=== PATIENT | male | born 1935 | race Caucasian/White ===

== ENCOUNTER 2018-11-23 05:39 | Inpatient (IN) | payer OTHER ==
[~2018-11-23] VITALS: Ht 170.2 cm; Wt 63.0 kg
[~2018-11-23 05:39] MED LIST: ALTACE10 MG PO; DIGOXIN250 MCG PO; FLOMAX0.4 MG PO; LASIX 20 MG TAB20 MG PO; LIPITOR 20 MG T20 M1 PO; METOPROLOL SUCC50 MG PO
[2018-11-23 05:47] VITALS: BP 141/85
[2018-11-23] MEDS ORDERED: PROSCAR 5MG TABL5 MG PO (06:14)
[2018-11-23] MEDS ORDERED: LOVASTATIN 20 M20 MG PO (06:14)
[2018-11-23] MEDS ORDERED: ZESTRIL10 MG PO (06:15)
[2018-11-23 06:35] LABS: ABSOLUTE NEUTROPHILS 6.1 thou/uL (1.4-8.2); BASOPHILS 0.6 % (0.0-2.0); EOSINOPHILS 0.4 % (0.0-3.0); HEMATOCRIT 42.1 % (42.0-52.0); LYMPHOCYTES 11.8 % (24.0-44.0); MCHC 33.3 g/dL (28.0-37.0); MCV 93.1 fL (80.0-100.0); MONOCYTES 5.6 % (1.0-8.0); PLATELET COUNT 122 thou/uL (150-400); POLYS 81.6 % (36.0-66.0); RBC 4.52 mil/uL (4.50-6.00); WBC 7.5 thou/uL (4.0-11.0)
[2018-11-23 06:51] LABS: ANION GAP 12 mmol/L (7-16); BUN 16 mg/dL (7-18); CALCIUM 8.7 mg/dL (8.5-10.1); CHLORIDE 103 mmol/L (98-107); CO2 23 mmol/L (21-32); CREATININE 1.1 mg/dL (0.7-1.3); GLUCOSE 133 mg/dL (74-106); POTASSIUM 3.3 mmol/L (3.5-5.1); SODIUM 138 mmol/L (136-145)
[2018-11-23 07:00] LABS: MAGNESIUM 1.8 mg/dL (1.8-2.4); TROPONIN-I <0.06 ng/mL (<0.06)
[2018-11-23 07:37] VITALS: BP 130/78
[2018-11-23 07:57] VITALS: BP 146/88
--- NOTE | 2018-11-23 08:07 | EKG ---
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 : 1935 Requested By: Shonna Medrano Order Number: [id number] MD: Dilip Miller Measurements Intervals Lindsay Rate: 109 P: AK: QRS: 76 QRSD: 146 T: 237 QT: 379 QTc: 511 Interpretive Statements Atrial fibrillation Paired ventricular premature complexes Left bundle branch block Compared to ECG 06/09/2016 07:19:36 Ventricular premature complex(es) now present Left bundle-branch block now present Junctional rhythm no longer present Electronically Signed On 11-23-2018 8:07:13 CDT by Dilip Miller [email or web address] ��������������������������������������������� <ELECTRONICALLY SIGNED> ���������������������������������������� By: Dilip Miller MD ��������������������������������������������� 11/23/18 0807 [id number] Dilip Miller MD /EPI
--- NOTE | 2018-11-23 09:32 | 2DMMODE ---
[facility] [address] [place] [address] 2 D/M-MODE ECHOCARDIOGRAM Name: ALBERTO ORTIZ Room #: 218-P ADM IN .R.#: [id number] ������������� Admission: 11/23/18 ������������� Attend Phys: Pal Cannon MD Discharge: ��� ������������� ��� Date of : 35 Date of Service: 11/23/18 0932 �� Report #: [id number] �������� ��������������������������������������������[id number] THIS REPORT FOR: //name// APPROVED REPORT Study performed: 11/23/2018 08:49:34 EXAM: Comprehensive 2D, Doppler, and color-flow Echocardiogram Patient Location: Bedside Room #: 218 Status: routine BSA: 1.74 HR: 82 bpm BP: 146/88 mmHg Rhythm: Atrial Fibrillation Other Information Study Quality: Good Indications Chest Pressure Dyspnea CAD Cardiomyopathy Hypertension/HDD 2D Dimensions RVDd: 33.39 mm IVSd: 6.21 (7-11mm) LVOT Diam: 18.99 (18-24mm) LVDd: 61.34 mm PWd: 6.02 (7-11mm) Ascending Ao: 34.25 (22-36mm) LVDs: 57.15 (25-40mm) Aortic Root: 34.69 mm IVC: 27.00 mm Volumes Left Atrial Volume (Systole) Single Plane 4CH: 99.52 mL Single Plane 2CH: 90.45 mL LA ESV Index: 58.00 mL/m2 Aortic Valve AoV Peak Zcahery.: 1.15 m/s AO Peak Gr.: 5.28 mmHg LVOT Max P.21 mmHg LVOT Max V: 1.03 m/s AURELIA Vmax: 2.53 cm2 [facility] [address] [place] [address] 2 D/M-MODE ECHOCARDIOGRAM Name: ALBERTO ORTIZ Room #: 218-P ADM IN .R.#: [id number] ������������� Admission: 11/23/18 ������������� Attend Phys: Pal Cannon MD Discharge: ��� ������������� ��� Date of : 35 Date of Service: 11/23/18 0932 �� Report #: [id number] �������� ��������������������������������������������[id number] Pulmonary Valve PV Peak Zachery.: 1.02 m/s PV Peak Gr.: 4.18 mmHg Tricuspid Valve TR Peak Zachery.: 3.61 m/s TR Peak Gr.: 52.21 mmHg PA Pressure: 67.00 mmHg Left Ventricle Left ventricle is dilated. There is severe global hypokinesis of the left ventricle. There is normal left ventricular wall thickness. Left ventricular ejection fraction is severely decreased. LVEF is 20-25%. This study is not technically sufficient to allow evaluation of the LV diastolic function due to atrial fibrillation. Right Ventricle The right ventricle is normal size. Right ventricle is hypokinetic. Atria Left atrium is dilated. Right atrium is dilated. Aortic Valve The aortic valve is mildly sclerotic No aortic regurgitation is present. There is no aortic valvular stenosis. Mitral Valve The mitral valve is normal in structure. Moderate mitral regurgitation. No evidence of mitral valve stenosis. Tricuspid Valve The tricuspid valve is normal in structure. There is moderate tricuspid regurgitation. Estimated PAP 65 mmHg. There is moderate-severe pulmonary hypertension. Pulmonic Valve The pulmonary valve is normal in structure. There is no pulmonic valvular regurgitation. Great Vessels The aortic root is normal in size. The inferior vena cava is dilated with no inspiratory collapse. Pericardium There is no pericardial effusion. [facility] [address] [place] [address] 2 D/M-MODE ECHOCARDIOGRAM Name: ALBERTO ORTIZ Chirag Room #: 218-P ADM IN M.R.#: [id number] ������������� Admission: 11/23/18 ������������� Attend Phys: Pal Cannon MD Discharge: ��� ������������� ��� Date of : 35 Date of Service: 11/23/18931 �� Report #: [id number] �������� ��������������������������������������������[id number] <Conclusion> Left ventricular ejection fraction is severely decreased. There is severe global hypokinesis of the left ventricle. LVEF is 20-25%. Both atria are dilated. The aortic valve is mildly sclerotic. No aortic regurgitation or stenosis. The mitral valve is normal in structure. Moderate mitral regurgitation. There is moderate tricuspid regurgitation. Estimated pulmonary artery pressure of 65 mmHg. There is no pericardial effusion. ��������������������������������������������� <ELECTRONICALLY SIGNED> ���������������������������������������� By: Pierce Maddox MD, [facility] ��������������������������������������������� 11/23/1832 09 Pierce Maddox MD, FACC /INF
[2018-11-23 11:34] VITALS: BP 122/84
[2018-11-23 19:25] VITALS: BP 118/70
[2018-11-24 00:34] VITALS: BP 112/74
[2018-11-24 03:54] VITALS: BP 116/73
[2018-11-24 08:12] VITALS: BP 117/72
[2018-11-24 08:15] LABS: CALCIUM 9.1 mg/dL (8.5-10.1); CREATININE 1.2 mg/dL (0.7-1.3); POTASSIUM 4.1 mmol/L (3.5-5.1)
[2018-11-24 12:16] VITALS: BP 112/66
[2018-11-24] MEDS ORDERED: ELIQUIS5 MG PO (12:27)
[2018-11-24] MEDS ORDERED: COREG6.25 MG PO (12:27)
[2018-11-24 16:32] VITALS: BP 112/66
== END 2018-11-24 17:11 | disposition home or self-care (01) | DRG 308 ==
LOC: ER 05:39 → EROBS 07:23 → 2N 07:23 → ENTRNSPT 11-24 16:53 → 2N 11-24 17:11
PROVIDERS: Emergency Medicine; Nurse Practitioner Gerontology; ADMIT Internal Medicine
DX: I48.1 Persistent atrial fibrillation (principal); I50.43 Acute on chronic combined systolic (congestive) and diastolic (congestive) heart failure; I11.0 Hypertensive heart disease with heart failure; I44.7 Left bundle-branch block, unspecified; I25.10 Atherosclerotic heart disease of native coronary artery without angina pectoris; N40.0 Benign prostatic hyperplasia without lower urinary tract symptoms; E78.5 Hyperlipidemia, unspecified; E87.6 Hypokalemia; I25.5 Ischemic cardiomyopathy; Z79.01 Long term (current) use of anticoagulants; Z86.711 Personal history of pulmonary embolism; Z79.899 Other long term (current) drug therapy; Z95.5 Presence of coronary angioplasty implant and graft; Z95.1 Presence of aortocoronary bypass graft; Z87.440 Personal history of urinary (tract) infections; Z87.891 Personal history of nicotine dependence; Z80.9 Family history of malignant neoplasm, unspecified; I25.2 Old myocardial infarction
CPT/HCPCS: 10081